=== PATIENT | male | born 1990 | race Caucasian/White ===

== ENCOUNTER 2018-05-05 04:16 | Emergency (ER) | payer SELFPAY ==
[~2018-05-05] VITALS: Ht 182.9 cm; Wt 100.0 kg
[2018-05-05 04:33] VITALS: Ht 182.9 cm; Wt 100.0 kg
[2018-05-05] MEDS ORDERED: LACTATED RINGER'S 1,000 ML IV STA (05:28)
[2018-05-05] MEDS ORDERED: DIPHTH/TET/ACEL PERTUSS (ADULT) 0.5 ML VIAL IM* ONE (05:30)
[2018-05-05] MEDS ORDERED: LIDOCAINE 1% (MPF) 5 ML VIAL INJ ONE (06:30)
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
[2018-05-05] MEDS ORDERED: IBUP800T48 PO (08:15)
[2018-05-05 08:37] VITALS: BP 136/79; PULSE 94; RESP 24
== END 2018-05-05 09:08 | disposition home or self-care (01) ==
LOC: E/R 04:16
DX: S01.01XA Laceration without foreign body of scalp, initial encounter (principal); S01.81XA Laceration without foreign body of other part of head, initial encounter; R51 Headache; R40.2142 Coma scale, eyes open, spontaneous, at arrival to emergency department; R40.2252 Coma scale, best verbal response, oriented, at arrival to emergency department; R40.2362 Coma scale, best motor response, obeys commands, at arrival to emergency department; S09.90XA Unspecified injury of head, initial encounter; Y08.89XA Assault by other specified means, initial encounter; Y92.9 Unspecified place or not applicable
CPT/HCPCS: 12002; 12011; 70450; 70486; 71045; 73562; 99285; J7120